=== PATIENT | female | born 1960 | race Asian ===

== ENCOUNTER → 2020-12-16 | Outpatient (CLI) | payer BC ==
[~2020-12-16] MED LIST: CALCIUM500 MG PO; COZAAR50 MG PO; MULTI-VITAMIN1 EACH PO; VIT B12 PO
== END ==
LOC: US 09:48 → ECHO 11:00
DX: R74.8 Abnormal levels of other serum enzymes (principal)
CPT/HCPCS: ECHO; 76705; 93306